=== PATIENT | male | born 1965 | race Caucasian/White ===

== ENCOUNTER 2021-04-08 16:37 | Outpatient (CLI) | payer OTHER, MEDICAID, SELFPAY ==
[~2021-04-08] VITALS: Ht 167.6 cm; Wt 108.9 kg
== END 2021-04-08 19:00 | disposition home or self-care (01) ==
LOC: SLB 16:37 → EDSTATUS 04-12 10:00
PROVIDERS: ATTEND Internal Medicine
DX: U07.1 COVID-19 (principal); Z01.812 Encounter for preprocedural laboratory examination; M51.16 Intervertebral disc disorders with radiculopathy, lumbar region
CPT/HCPCS: U0003

== ENCOUNTER 2021-04-26 07:48 | Day surgery (SDC) | payer OTHER, MEDICAID, SELFPAY ==
[~2021-04-26] VITALS: Ht 167.6 cm; Wt 102.1 kg
[~2021-04-26 07:48] MED LIST: BUPIVACAINE /PF 0.25% 30 ML VIAL INJ ONE; ISOVUE-300 (IOPAMIDOL) 100 ML INFUS..BTL IV ONE; LIDOCAINE 2%, 20 ML MDV ONE; NS 1000 ML IV.SOLN IV ONE; methylPREDNISolone ACETATE 40 MG/ML ONE
[2021-04-26] MEDS ORDERED: DIPHENHYDRAMINE INJ 50 MG/ML VIAL ONE (08:58)
[2021-04-26] MEDS ORDERED: MIDAZOLAM HCL 5 MG/5 ML VIAL ONE (08:59)
[2021-04-26 17:20] VITALS: BP_SYST 126
== END 2021-04-26 11:40 | disposition home or self-care (01) ==
LOC: SDS 07:48 → SMU 07:49 → SDS 11:40
PROVIDERS: ATTEND Internal Medicine
DX: M51.16 Intervertebral disc disorders with radiculopathy, lumbar region (principal); G89.4 Chronic pain syndrome; I10 Essential (primary) hypertension; E78.5 Hyperlipidemia, unspecified; Z79.82 Long term (current) use of aspirin; Z79.899 Other long term (current) drug therapy; Z20.822 Contact with and (suspected) exposure to COVID-19
CPT/HCPCS: 36415; 62323; 82962; 87426; J1030; J1200; J2001; J2250; J3490; J7030; Q9967; U0003; 76000